=== PATIENT | female | born 1990 ===

== ENCOUNTER 2018-12-11 08:45 | Inpatient (IN) ==
[2018-12-11] MEDS ORDERED: Oxytocin 20 units/ LR 1000 mL 20 UNIT/1,000 ML BAG IVC ONE (09:11)
[2018-12-11] MEDS ORDERED: Ringers Solution, Lactated 1,000 ML IVC ONE (09:11)
[2018-12-11] MEDS ORDERED: Famotidine 20 MG/2 ML VIAL IVP ONE (09:11)
[2018-12-11] MEDS ORDERED: Metoclopramide 10 MG/2 ML VIAL IVP ONE (09:11)
[2018-12-11] MEDS ORDERED: CeFAZolin Premix DUPLEX 2,000 MG/50 ML BAG IVPB ONE (09:11)
[2018-12-11] MEDS ORDERED: Oxytocin 20 units/ LR 1000 mL 20 UNIT/1,000 ML BAG IVC SCH ×2 (09:15→18:04)
[2018-12-11] MEDS ORDERED: Ringers Solution, Lactated 1,000 ML IVC SCH ×2 (09:15→18:04)
[2018-12-11] MEDS ORDERED: FLU Vac QV 19-20 (6Month+)/PF 0.5 ML SYRINGE IM ONE (09:20)
[2018-12-11 09:33] LABS: Basophils % 0.3 %; Eosinophils # 0.1 K/mcL (0.0-0.6); Eosinophils % 0.5 %; Hematocrit 36.1 % (35.3-44.9); Hemoglobin 12.7 g/dL (11.5-15.4); Immature Granulocytes % 1.1 % (0-4); Lymphocytes # 1.6 K/mcL (0.6-4.6); Lymphocytes % 15.6 %; Mean Corpuscular HGB Conc 35.2 g/dL (31.6-35.5); Mean Corpuscular Hemoglobin 31.5 pg (28.0-33.3); Mean Corpuscular Volume 89.6 fL (83.0-100.0); Monocytes # 0.6 K/mcL (0.0-1.3); Monocytes % 5.6 %; Neutrophils # 7.8 K/mcL (1.6-8.9); Platelet Count 246 K/mcL (140-400); Red Blood Count 4.03 M/mcL (3.82-4.97); Red Cell Distribution Width 12.5 % (11.5-14.5); Segmented Neutrophils % 76.9 %; White Blood Count 10.1 K/mcL (4.3-11.1)
[2018-12-11 09:51] LABS: Amphetamine Screen,Urine Negative ng/mL (Cutoff=1000); Barbiturate Screen,Urine Negative ng/mL (Cutoff=200); Benzodiazepines Screen,Urine Negative ng/mL (Cutoff=200); Cannabinoid Screen,Urine Negative ng/mL (Cutoff = 50); Cocaine Screen,Urine Negative ng/mL (Cutoff= 300); Opiate Screen,Urine Negative ng/mL (Cutoff=300); Phencyclidine Screen,Urine Negative ng/mL (Cutoff=25)
[2018-12-11] MEDS ORDERED: Ibuprofen 400 MG TABLET PO PRN (11:29)
[2018-12-11] MEDS ORDERED: *HR* OxyCODONE/APAP 5/325 TABLET PO PRN (11:29)
[2018-12-11] MEDS ORDERED: *HR* HYDROmorphone (PF) 1 MG/ML SYRINGE IVP PRN (11:29)
[2018-12-11] MEDS ORDERED: Morphine Sulfate 2 MG/ML SYRINGE IVP PRN (11:29)
[2018-12-11] MEDS ORDERED: Ondansetron 4 MG/2 ML VIAL IVP PRN ×2 (11:29→18:04)
[2018-12-11] MEDS ORDERED: Naloxone 0.4 MG/ML INJ IVP PRN (11:29)
[2018-12-11] MEDS ORDERED: Acetaminophen IV 1,000 MG/100 ML INFUS..BTL IVPB ONE (11:35)
[2018-12-11] MEDS ORDERED: *HR* FentaNYL (PF) 100 MCG/2 ML VIAL ONE (12:01)
[2018-12-11] MEDS ORDERED: *HR* Morphine Sulfate/PF 10 MG/10 ML AMPUL ONE (12:01)
[2018-12-11] MEDS ORDERED: EPHEDrine 50 MG/ML VIAL ONE (13:43)
[2018-12-11] MEDS ORDERED: *HR* Oxytocin 10 UNIT/ML VIAL IM ONE ×2 (13:43→15:28)
[2018-12-11] MEDS ORDERED: Ringers Solution, Lactated 1,000 ML ONE ×2 (14:43→15:28)
[2018-12-11] MEDS ORDERED: Ondansetron 4 MG/2 ML VIAL ONE (14:55)
[2018-12-11] MEDS ORDERED: Measles/Mumps/Rubella Vacc 0.5 ML VIAL SQ ONE (18:04)
[2018-12-11] MEDS ORDERED: *HR* OxyCODONE/APAP 10/325 TABLET PO PRN (18:04)
[2018-12-11] MEDS ORDERED: metroNIDAZOLE 500 MG TABLET PO ONE (18:04)
[2018-12-11] MEDS ORDERED: Simethicone 80 MG TAB.CHEW PO PRN (18:04)
[2018-12-11] MEDS ORDERED: Metoclopramide 10 MG/2 ML VIAL IVP PRN (18:04)
[2018-12-11] MEDS ORDERED: Sennosides 8.6 MG TABLET PO PRN (18:04)
[2018-12-11] MEDS: Ibuprofen 600 MG TABLET PO PRN (19:56)
[2018-12-11] MEDS: cephALEXin 500 MG CAPSULE PO SCH (19:56)
[2018-12-11] MEDS: metroNIDAZOLE 500 MG TABLET PO SCH (19:56)
[2018-12-12 06:16] LABS: Basophils % 0.2 %; Eosinophils # 0.1 K/mcL (0.0-0.6); Eosinophils % 0.5 %; Hematocrit 31.4 % (35.3-44.9); Immature Granulocytes % 0.8 % (0-4); Lymphocytes # 1.7 K/mcL (0.6-4.6); Lymphocytes % 15.2 %; Mean Corpuscular HGB Conc 33.8 g/dL (31.6-35.5); Mean Corpuscular Hemoglobin 31.4 pg (28.0-33.3); Mean Corpuscular Volume 92.9 fL (83.0-100.0); Mean Platelet Volume 9.5 fL (9.4-12.4); Monocytes # 0.9 K/mcL (0.0-1.3); Monocytes % 7.9 %; Neutrophils # 8.6 K/mcL (1.6-8.9); Platelet Count 193 K/mcL (140-400); Red Blood Count 3.38 M/mcL (3.82-4.97); Red Cell Distribution Width 12.4 % (11.5-14.5); Segmented Neutrophils % 75.4 %; White Blood Count 11.5 K/mcL (4.3-11.1)
[2018-12-12 06:17] LABS: Hemoglobin 10.6 g/dL (11.5-15.4)
[2018-12-12] MEDS: cephALEXin 500 MG CAPSULE PO SCH ×2 (08:13→20:43)
[2018-12-12] MEDS: Ibuprofen 600 MG TABLET PO PRN ×2 (08:13→13:46)
[2018-12-12] MEDS: Prenatal Vit/FA 1 EACH TABLET PO SCH (08:13)
[2018-12-12] MEDS: metroNIDAZOLE 500 MG TABLET PO SCH ×2 (08:14→20:43)
[2018-12-12] MEDS: *HR* OxyCODONE/APAP 5/325 TABLET PO PRN ×2 (15:50→20:44)
[2018-12-13] MEDS: Ibuprofen 600 MG TABLET PO PRN ×2 (02:07→10:43)
[2018-12-13] MEDS: *HR* OxyCODONE/APAP 5/325 TABLET PO PRN (08:03)
[2018-12-13] MEDS: metroNIDAZOLE 500 MG TABLET PO SCH (08:03)
[2018-12-13] MEDS: cephALEXin 500 MG CAPSULE PO SCH (08:03)
[2018-12-13] MEDS: Prenatal Vit/FA 1 EACH TABLET PO SCH (08:04)
[2018-12-13 08:39] VITALS: BP 121/83
[2018-12-13] MEDS ORDERED: FLU Vac QV 19-20 (6Month+)/PF 0.5 ML SYRINGE IM ONE (09:58)
[2018-12-13] MEDS ORDERED: Measles/Mumps/Rubella Vacc 0.5 ML VIAL SQ ONE (09:58)
== END 2018-12-13 11:14 | disposition home or self-care (01) | DRG 787 ==
LOC: 1NENULAB 08:45 → 1NENUOBS 18:04
PROVIDERS: ADMIT Obstetrics & Gynecology; ATTEND Obstetrics & Gynecology